=== PATIENT | male | born 1955 | race Caucasian/White ===

== ENCOUNTER 2021-07-09 16:33 | Inpatient (IN) | payer OTHER ==
[~2021-07-09] VITALS: Ht 180.3 cm; Wt 56.1 kg
[2021-07-09] MEDS ORDERED: LACTATED RINGERS 1000ML 1,000 ML IV ONE (17:00)
[2021-07-09 17:09] LABS: BASOPHILS % (AUTO) 0.9 % (0.0-5.0); EOSINOPHILS % (AUTO) 1.4 % (0.0-8.0); HEMATOCRIT 31.1 % (42-54); LYMPHOCYTES % (AUTO) 32.3 % (21.0-51.0); MEAN CORPUSCULAR HEMOGLOBIN 33.6 pg (27.0-33.0); MEAN CORPUSCULAR HGB CONC 36.7 g/dL (32.0-36.0); MEAN CORPUSCULAR VOLUME 91.7 fL (79-99); MONOCYTES % (AUTO) 9.8 % (3.0-13.0); NEUTROPHILS % (AUTO) 55.3 % (40.0-77.0); PLATELET COUNT (AUTO) 137 K/uL (130-400); RED BLOOD CELL COUNT(AUTO) 3.39 MIL/uL (4.50-6.20); RED CELL DISTRIBUTION WIDTH 12.8 % (11.0-15.5); WHITE BLOOD COUNT (AUTO) 3.5 K/uL (4.8-10.8)
[2021-07-09 17:19] LABS: CREATININE 0.7 mg/dL (0.5-1.5); POTASSIUM 3.7 mmol/L (3.5-5.1)
[2021-07-09 17:22] LABS: APPEARANCE,URINE Clear (CLEAR); BILIRUBIN,URINE Negative (NEGATIVE); COLOR,URINE Yellow (YELLOW); GLUCOSE, URINE (UA) Negative (NEGATIVE); KETONES,URINE Negative (NEGATIVE); LEUKOCYTE ESTERASE ,URINE Negative (NEGATIVE); NITRATE,URINE Negative (NEGATIVE); OCCULT BLOOD,URINE Negative (NEGATIVE); PH,URINE 5.5 (5.0-8.0); PROTEIN,URINE Negative (NEGATIVE)
[2021-07-09 17:24] LABS: ALBUMIN 2.6 g/dL (3.5-5.0); TOTAL PROTEIN, SERUM 5.4 g/dL (6.0-8.3)
[2021-07-09] MEDS ORDERED: PHARMACY COMMUNICATION MISC PRN (17:30)
[2021-07-09] MEDS ORDERED: THIAMINE HCL 100 MG, FOLIC ACID 1 MG in 0.9%NACL 1000ML 1,000 ML IV SCH (17:30)
[2021-07-09] MEDS ORDERED: ACETAMINOPHEN 325 MG TAB PO PRN (17:30)
[2021-07-09] MEDS ORDERED: OCTREOTIDE ACETATE 1,250 MCG in 0.9% NACL 250ML 250 ML IV SCH (17:30)
[2021-07-09] MEDS ORDERED: ONDANSETRON 4MG INJ IV PRN (17:30)
[2021-07-09] MEDS ORDERED: PROMETHAZINE HCL 25 MG TABLET PO PRN (17:30)
[2021-07-09 17:53] LABS: RETICULOCYTE % (AUTO) 1.62 % (0.42-2.23)
[2021-07-09 17:59] LABS: INR 1.24 (0.85-1.15); PROTHROMBIN TIME 13.3 SEC (9.6-11.6)
[2021-07-09 18:00] LABS: PARTIAL THROMBOPLASTIN TIME 33.2 SEC (26.3-35.5)
[2021-07-09] MEDS: DIAZEPAM 5 MG TABLET PO SCH (18:11)
[2021-07-09] MEDS ORDERED: 0.9%NACL 50ML 50 ML IV ONE (18:11)
[2021-07-09] MEDS: CEFTRIAXONE 1G VIAL IV SCH (18:11)
[2021-07-09 18:15] LABS: AMPHET/METH SCREEN,URINE NEGATIVE (NEGATIVE); BARBITURATE SCREEN, URINE NEGATIVE (NEGATIVE); BENZODIAZEPINES SCREEN,URINE NEGATIVE (NEGATIVE); CANNABINOID SCREEN,URINE NEGATIVE (NEGATIVE); COCAINE SCREEN,URINE NEGATIVE (NEGATIVE); OPIATE SCREEN,URINE NEGATIVE (NEGATIVE); PHENCYCLIDINE SCREEN,URINE NEGATIVE (NEGATIVE)
[2021-07-09] MEDS: THIAMINE HCL 100 MG, FOLIC ACID 1 MG, M.V.I. IV [ADULT] 10 ML in 0.9%NACL 1000ML 1,000 ML IV SCH (19:02)
[2021-07-09 19:24] LABS: ALBUMIN 2.2 g/dL (3.5-5.0); BILIRUBIN,DIRECT 0.4 mg/dL (0.0-0.3); BILIRUBIN,TOTAL 0.8 mg/dL (0.2-1.0); MAGNESIUM 1.7 mg/dL (1.80-2.40); THYROID STIMULATING HORMONE 3.94 uIU/mL (0.36-3.74); TOTAL PROTEIN, SERUM 4.6 g/dL (6.0-8.3)
[2021-07-09 19:25] LABS: % IRON SATURATION 125.3 % (30-44)
[2021-07-09 20:54] LABS: HEMATOCRIT 28.2 % (42-54)
[2021-07-09] MEDS ORDERED: MAGNESIUM 2GM PREMIX 50ML 50 ML IV PRN (21:30)
[2021-07-09] MEDS: PANTOPRAZOLE 40MG INJ 80 MG in 0.9%NACL 100ML 100 ML IV SCH (21:39)
[2021-07-09] MEDS: ACETAMINOPHEN 325 MG TAB PO PRN (23:01)
[2021-07-10] MEDS: DIAZEPAM 5 MG TABLET PO SCH ×3 (01:41→17:25)
[2021-07-10] MEDS: PANTOPRAZOLE 40MG INJ 80 MG in 0.9%NACL 100ML 100 ML IV SCH ×2 (08:09→19:56)
[2021-07-10] MEDS: MULTIVITAMIN TABLET PO SCH (08:49)
[2021-07-10] MEDS: THIAMINE HCL 100 MG/ML 2ML VIAL IM SCH (08:49)
[2021-07-10] MEDS: FOLIC ACID 1 MG TABLET PO SCH (08:49)
[2021-07-10 09:43] LABS: HEMATOCRIT 31.2 % (42-54)
[2021-07-10 12:00] LABS: BASOPHILS % (AUTO) 1.5 % (0.0-5.0); EOSINOPHILS % (AUTO) 2.2 % (0.0-8.0); HEMATOCRIT 31.7 % (42-54); LYMPHOCYTES % (AUTO) 30.8 % (21.0-51.0); MEAN CORPUSCULAR HGB CONC 35.3 g/dL (32.0-36.0); MEAN CORPUSCULAR VOLUME 93.5 fL (79-99); MONOCYTES % (AUTO) 10.6 % (3.0-13.0); NEUTROPHILS % (AUTO) 54.5 % (40.0-77.0); PLATELET COUNT (AUTO) 122 K/uL (130-400); RED BLOOD CELL COUNT(AUTO) 3.39 MIL/uL (4.50-6.20); WHITE BLOOD COUNT (AUTO) 2.7 K/uL (4.8-10.8)
[2021-07-10 12:11] LABS: POTASSIUM 3.5 mmol/L (3.5-5.1)
[2021-07-10 12:15] LABS: ALBUMIN 2.4 g/dL (3.5-5.0); BILIRUBIN,TOTAL 1.2 mg/dL (0.2-1.0); MAGNESIUM 1.8 mg/dL (1.80-2.40)
[2021-07-10 13:24] LABS: PLATELET MORPHOLOGY COMMENT ADEQUATE
[2021-07-10 13:28] LABS: BASOPHILS % (MANUAL) 2 % (0-2); EOSINOPHILS % (MANUAL) 2 % (1-6); LYMPHOCYTES % (MANUAL) 24 % (22-44); MONOCYTES % (MANUAL) 20 % (2-9); SEGMENTED NEUTROPHILS % 52 % (40-70)
[2021-07-10 13:29] LABS: MAN.DIFF COMMENT-IMPRESSION MANUAL DIFFERENTIAL
[2021-07-10 14:44] LABS: HEMATOCRIT 31.9 % (42-54)
[2021-07-10] MEDS ORDERED: PEG 3350/NA SULF,BICARB,CL/KCL 4000 ML SOLN PO ONE (17:00)
[2021-07-10] MEDS ORDERED: 0.9%NACL 50ML 50 ML IV ONE (17:06)
[2021-07-10] MEDS: CEFTRIAXONE 1G VIAL IV SCH (17:18)
[2021-07-10] MEDS: THIAMINE HCL 100 MG, FOLIC ACID 1 MG, M.V.I. IV [ADULT] 10 ML in 0.9%NACL 1000ML 1,000 ML IV SCH (19:56)
[2021-07-10] MEDS: ACETAMINOPHEN 325 MG TAB PO PRN (21:57)
[2021-07-11] MEDS: DIAZEPAM 5 MG TABLET PO SCH ×3 (01:30→17:30)
[2021-07-11 07:14] LABS: HEMATOCRIT 32.5 % (42-54); MEAN CORPUSCULAR HEMOGLOBIN 33.4 pg (27.0-33.0); MEAN CORPUSCULAR VOLUME 92.9 fL (79-99); RED BLOOD CELL COUNT(AUTO) 3.5 MIL/uL (4.50-6.20); RED CELL DISTRIBUTION WIDTH 12.8 % (11.0-15.5); WHITE BLOOD COUNT (AUTO) 3.1 K/uL (4.8-10.8)
[2021-07-11 07:22] LABS: CREATININE 0.8 mg/dL (0.5-1.5); POTASSIUM 3.4 mmol/L (3.5-5.1)
[2021-07-11] MEDS ORDERED: PANTOPRAZOLE 40 MG/VIAL ONE (08:05)
[2021-07-11] MEDS: MULTIVITAMIN TABLET PO SCH (08:13)
[2021-07-11] MEDS: FOLIC ACID 1 MG TABLET PO SCH (08:13)
[2021-07-11] MEDS: LORAZEPAM 2 MG/ML 1 ML VIAL IVP PRN (08:14)
[2021-07-11] MEDS: THIAMINE HCL 100 MG/ML 2ML VIAL IM SCH (08:36)
[2021-07-11] MEDS ORDERED: PEG 3350/NA SULF,BICARB,CL/KCL 4000 ML SOLN PO SCH (16:00)
[2021-07-11] MEDS: CEFTRIAXONE 1G VIAL IV SCH (17:38)
[2021-07-11] MEDS: THIAMINE HCL 100 MG, FOLIC ACID 1 MG, M.V.I. IV [ADULT] 10 ML in 0.9%NACL 1000ML 1,000 ML IV SCH (18:33)
[2021-07-11 20:00] VITALS: BP 138/93
[2021-07-11] MEDS: PANTOPRAZOLE 40MG INJ 80 MG in 0.9%NACL 100ML 100 ML IV SCH (21:30)
[2021-07-12] VITALS (15 sets, daily range): BP systolic 105–177; BP diastolic 65–106
[2021-07-12] MEDS: LORAZEPAM 2 MG/ML 1 ML VIAL IVP PRN ×2 (01:13→09:05)
[2021-07-12] MEDS: DIAZEPAM 5 MG TABLET PO SCH ×2 (01:13→08:48)
[2021-07-12 05:36] LABS: EOSINOPHILS % (AUTO) 3.7 % (0.0-8.0); LYMPHOCYTES % (AUTO) 25.3 % (21.0-51.0); MEAN CORPUSCULAR HEMOGLOBIN 33.3 pg (27.0-33.0); MEAN CORPUSCULAR HGB CONC 34.5 g/dL (32.0-36.0); MEAN CORPUSCULAR VOLUME 96.5 fL (79-99); MONOCYTES % (AUTO) 10.7 % (3.0-13.0); PLATELET COUNT (AUTO) 85 K/uL (130-400); RED BLOOD CELL COUNT(AUTO) 3.42 MIL/uL (4.50-6.20); RED CELL DISTRIBUTION WIDTH 12.9 % (11.0-15.5)
[2021-07-12 05:58] LABS: ALBUMIN 2.3 g/dL (3.5-5.0); BILIRUBIN,TOTAL 1.2 mg/dL (0.2-1.0); CREATININE 0.7 mg/dL (0.5-1.5); POTASSIUM 3.7 mmol/L (3.5-5.1)
[2021-07-12 06:58] LABS: EOSINOPHILS % (MANUAL) 8 % (1-6); LYMPHOCYTES % (MANUAL) 24 % (22-44); MAN.DIFF COMMENT-IMPRESSION MANUAL DIFFERENTIAL; MONOCYTES % (MANUAL) 1 % (2-9); PLATELET MORPHOLOGY COMMENT DECREASED; SEGMENTED NEUTROPHILS % 67 % (40-70)
[2021-07-12] MEDS: MULTIVITAMIN TABLET PO SCH (08:48)
[2021-07-12] MEDS: FOLIC ACID 1 MG TABLET PO SCH (08:54)
[2021-07-12] MEDS: THIAMINE HCL 100 MG/ML 2ML VIAL IM SCH (08:56)
[2021-07-12] MEDS ORDERED: PROPOFOL 10 MG/ML 20ML VIAL IV ONE (12:48)
[2021-07-12] MEDS: CEFTRIAXONE 1G VIAL IV SCH (17:09)
== END 2021-07-12 19:30 | disposition home or self-care (01) | DRG 393 ==
LOC: EDH 16:33 → EDHIP 17:28 → 3CH 07-11 18:31
PROVIDERS: ADMIT Internal Medicine; ATTEND Internal Medicine
PROC: 0DBP8ZZ Excision of Rectum, Via Natural or Artificial Opening Endoscopic (ICD-10-PCS; principal; 2021-07-12)
DX: K62.1 Rectal polyp (principal); E43 Unspecified severe protein-calorie malnutrition; D62 Acute posthemorrhagic anemia; E87.1 Hypo-osmolality and hyponatremia; Z68.1 Body mass index [BMI] 19.9 or less, adult; Q43.8 Other specified congenital malformations of intestine; D84.9 Immunodeficiency, unspecified; E51.2 Wernicke's encephalopathy; K70.10 Alcoholic hepatitis without ascites; K64.0 First degree hemorrhoids; Z20.822 Contact with and (suspected) exposure to COVID-19; E78.5 Hyperlipidemia, unspecified; F17.210 Nicotine dependence, cigarettes, uncomplicated; F10.20 Alcohol dependence, uncomplicated; I10 Essential (primary) hypertension; E11.9 Type 2 diabetes mellitus without complications; K76.0 Fatty (change of) liver, not elsewhere classified; M35.3 Polymyalgia rheumatica; K70.30 Alcoholic cirrhosis of liver without ascites; K40.90 Unilateral inguinal hernia, without obstruction or gangrene, not specified as recurrent; Z88.0 Allergy status to penicillin; Z90.49 Acquired absence of other specified parts of digestive tract; Z79.52 Long term (current) use of systemic steroids; Z82.49 Family history of ischemic heart disease and other diseases of the circulatory system
CPT/HCPCS: 36415; 45380; 76700; 80048; 80053; 80076; 80305; 81003; 82140; 82270; 82948; 83540; 83550; 83605; 83735; 84100; 84145; 84443; 85014; 85018; 85025; 85027; 85045; 85610; 85730; 86850; 86900; 86901; 87635; 88305; 93005; A4606; C9113; G0378; J0696; J2060; J2354; J2704; J3411; J3490; J7030; J7050